=== PATIENT | female | born 1980 | race Caucasian/White ===

== ENCOUNTER 2023-04-25 11:57 | Emergency (ER) | payer MEDICAID, OTHER, SELFPAY ==
[2023-04-25 12:10] VITALS: BP 120/64; PULSE 70; RESP 18; TEMP 36.4; O2SAT 98; BMI 36.6
--- NOTE | 2023-04-25 12:16 | ED.GENADULT ---
HPI - General Adult General Chief complaint: General Medical Stated complaint: sent by pcp Time Seen by Provider: 04/25/23 12:21 Source: patient Mode of arrival: ambulatory Limitations: no limitations History of Present Illness HPI narrative: 42 yold female who used to be on deposhot and have not any shot in three months. Patient states no physical complaints. Patient wants to receive a form of control. Patient's OBGYN is in [place]. Patient states she is not . Related Data Allergies Allergy/AdvReac Type Severity Reaction Status Date / Time No Known Allergies Allergy Verified 04/25/23 12:09 Review of Systems Review of Systems: wants control Yes all other systems are reviewed and are negative [facility] Social History Social History Advance Directives: No Advance Directives Information Provided: No Physical Exam ED Vital Signs: Vital Signs - 24 hr 04/25/23 12:10 Temperature 97.5 F Pulse Rate 70 Respiratory Rate 18 Blood Pressure 120/64 Pulse Oximetry 98 Oxygen Delivery Method Room Air BMI result Body Mass Index 36.6 Const General: cooperative, healthy appearing, comfortable, no acute distress, well developed, alert and awake Orientation/consciousness: oriented to person, oriented to place, oriented to time and patient oriented x3 HENMT Head: Yes normal to inspection, Yes No palpable skull fracture present, Yes normocephalic, Yes atraumatic, No abrasion and No laceration Eyes General: appearance normal, both eyes and all related structures Neck Neck: Yes normal visual inspection, Yes full ROM, Yes no lymphadenopathy, Yes no meningeal signs, Yes trachea midline, Yes supple, No anterior neck swelling and No tender Chest Chest palpation & inspection: normal inspection of the chest and normal palpation of entire chest wall Resp Effort & Inspection: normal respiratory effort and able to speak in complete sentences Auscultation: clear to auscultation bilaterally Cardio Jugular venous distension: no JVD Heart sounds: S1 normal heart sound present and S2 normal heart sound present GI Inspection: Yes normal to inspection and No abdominal wall ecchymosis Palpation (GI): Soft to palpation, not firm, nontender, no guarding, not rigid and no hepatomegaly General: No CVA tenderness and Yes no CVA tenderness Back/Spine/Pelvis Back: no CVA tenderness, No CVA tenderness and No back tenderness Skin General skin exam: no rashes or lesions noted, elasticity normal and turgor normal Neuro General: oriented to person, oriented to place, oriented to time, patient oriented x3, gait normal, tone normal, moves all extremities, Normal light touch and pain sensation, no meningeal signs and no focal motor deficits Extrem General: Yes normal to inspection and Yes full ROM Psych Appearance: grossly normal, well kempt and not disheveled Medical Decision Making Medical Decision Making MDM Narrative: 42 yold female presents to the ED requesting brith control. patient states she is due to for a birthcontrol shot and is usually gets every 3 months. patient states Depo shot. patient states no vaginal bleeding, abdominal pain, nuasea, vomitting, fever, chills, or any other concerning symptoms. patient informed she should follow up with our OBGYN for re-evalaion to receive safe control. Patient also given list of [facility] services in [place] who can offer control. patient educated on using condoms to prevent and STIS until meeting with OBGYN External Record Review External record reviewed: Other (Prior ED visit) Discharge Plan Discharge Clinical Impression: Normal exam Patient Disposition: Home, Self-Care Instructions: Normal Exam (ED) Additional Instructions: Kristie un seguimiento con nuestro obstetra o ginec?logo para hakeem reevaluaci?n del m?todo anticonceptivo adecuado. Regrese al servicio de urgencias de inmediato si presenta cualquier dolor abdominal, sangrado vaginal, flujo vaginal, dolor en el costado, fiebre, escalofr?os, dolor en el pecho o dificultad para respirar. Hasta que la evaluaci?n por parte del OBGYN recomiende el uso de condones para prevenir embarazos y enfermedades. Referrals: Bruce Gilliam MD [Physician] - (Requesting COntrol Depo Shot) Interventions: ED Discharge Assessment Last Done: 04/25/23 12:43 Discharge Date/Time: 04/25/23 12:43 Print Language: [place]
== END 2023-04-25 12:43 | disposition home or self-care (01) ==
LOC: HO.ED 12:43
PROVIDERS: Emergency Provider Emergency Medicine
DX: Z30.9 Encounter for contraceptive management, unspecified (principal)
CPT/HCPCS: 99282